=== PATIENT | female | born 1945 | race Two or more races ===

== ENCOUNTER 2019-08-12 18:20 | Inpatient (IN) | payer OTHER ==
[~2019-08-12] VITALS: Ht 160 cm; Wt 52.6 kg
[2019-08-12] MEDS ORDERED: CARBIDOPA5 GM (20:18)
--- NOTE | 2019-08-12 20:18 | NUR ---
PT ALERTA ESTUPOROSA POR CONDICION MEDICA -PARKINSON [id number]-. EN [place] ESPECIAL PARA PT. EN COMPNIA DE [place]. REFIERE DESDE EL PASADO VIERNES PRESENTA FIEBRE.
--- NOTE | 2019-08-12 21:44 | NUR ---
MS JOAN ORIENTA PTE SOBRE TX MEDICO EL CUAL REFIERE ENTENDER.SE LE EXTRAEN MUESTRAS BAJO MEDIDAS ASEPTICAS,SE NOTIFICAN ABG A MS GARZA.
--- NOTE | 2019-08-12 23:45 | NUR ---
SE ORIENTA AL FAMILIAR SOBRE EL TX. SE CANALIZA Y ADMINISTRAN MEDICAMENTOS AKASH ORDEN MEDICA BAJO MEDIDAS ASEPTICAS.
--- NOTE | 2019-08-13 01:11 | NUR ---
PTE RE EVALUADA POR EL DR. JAISON STOKES ORIENTA AL FAMILIAR SOBRE EL TX. SE EXTRAEN B/C BAJO MEDIDAS ASEPTICAS SE ROTULAN Y ENVIAN AL LABORATORIO. SE CATETERIZA PTE BAJO MEDIDAS ESTERILES SE ROTULAN Y ENVIAN AL LABORATORIO.
--- NOTE | 2019-08-13 07:24 | NUR ---
SE RECIBE PTE DEL TURNO ANTERIOR, EN CAMA NIVEL MAS BAJO, VALADEZ DE IDENTIFICACION Y BARANDAS ELEVADAS POR PRECAUCION, EN COMPANIA DE FAMILIAR. SE OBSERVA OCN BUEN PATRON RESPIRATORIO Y PIEL TIBIA AL TACTO. IV PATENTE Y VICKIE DE EDEMA O ERITEMA CON 0.9% NSS @125ML/HR. PENDIENTE A REALIZAR U/C. PENDIENTE A CONSULTA CON DR Anni CARROLL.
== END 2019-08-20 12:10 | disposition left against medical advice (07) | DRG 202 ==
LOC: ER 18:20 → MEDJ 08-13 13:33 → SURH 08-13 13:33 → MEDI 08-14 17:02 → MEDJ 08-17 11:38
PROVIDERS: ADMIT Internal Medicine
PROC: 4A033R1 Measurement of Arterial Saturation, Peripheral, Percutaneous Approach (ICD-10-PCS; principal; 2019-08-13)
PROC: 3E0F7GC Introduction of Other Therapeutic Substance into Respiratory Tract, Via Natural or Artificial Opening (ICD-10-PCS; 2019-08-13)
PROC: 0DH67UZ Insertion of Feeding Device into Stomach, Via Natural or Artificial Opening (ICD-10-PCS; 2019-08-13)
PROC: 3E0G76Z Introduction of Nutritional Substance into Upper GI, Via Natural or Artificial Opening (ICD-10-PCS; 2019-08-13)
PROC: BW28ZZZ Computerized Tomography (CT Scan) of Head (ICD-10-PCS; 2019-08-14)
PROC: B246ZZZ Ultrasonography of Right and Left Heart (ICD-10-PCS; 2019-08-17)
DX: J20.8 Acute bronchitis due to other specified organisms (principal); B37.1 Pulmonary candidiasis; N39.0 Urinary tract infection, site not specified; R65.10 Systemic inflammatory response syndrome (SIRS) of non-infectious origin without acute organ dysfunction; E44.0 Moderate protein-calorie malnutrition; J90 Pleural effusion, not elsewhere classified; J98.11 Atelectasis; I31.3 Pericardial effusion (noninflammatory); I10 Essential (primary) hypertension; I08.1 Rheumatic disorders of both mitral and tricuspid valves; J32.8 Other chronic sinusitis; R31.29 Other microscopic hematuria; R13.19 Other dysphagia; B96.29 Other Escherichia coli [E. coli] as the cause of diseases classified elsewhere; G31.89 Other specified degenerative diseases of nervous system; G20 Parkinson's disease; F02.80 Dementia in other diseases classified elsewhere, unspecified severity, without behavioral disturbance, psychotic disturbance, mood disturbance, and anxiety; Z74.01 Bed confinement status